=== PATIENT | female | born 1955 | race Caucasian/White ===

== ENCOUNTER 2016-12-31 13:03 | Outpatient (CLI) | payer BC ==
[2016-12-31 13:40] LABS: APPEARANCE,URINE Clear (CLEAR); COLOR,URINE Yellow (YELLOW); OCCULT BLOOD,URINE 1+ (NEGATIVE); UROBILINOGEN URINE 0.2 Eu (0.2-1.0)
[2016-12-31 14:19] LABS: AMORPHOUS SEDIMENT,UR FEW (NEGATIVE)
== END 2016-12-31 13:04 ==
LOC: LAB 13:03
PROVIDERS: ATTEND Internal Medicine
DX: N39.0 Urinary tract infection, site not specified (principal)
CPT/HCPCS: 81002; 87086